=== PATIENT | male | born 1970 | race African-American/Black ===

== ENCOUNTER 2018-02-21 10:13 | Emergency (ER) | payer OTHER ==
[~2018-02-21] VITALS: Ht 177.8 cm; Wt 107.3 kg
[2018-02-21 10:20] VITALS: BP 122/89
[2018-02-21] MEDS ORDERED: NAPROSYN500 MG PO (11:18)
== END 2018-02-21 11:33 | disposition home or self-care (01) ==
LOC: EME 10:13
DX: M25.462 Effusion, left knee (principal); S83.92XA Sprain of unspecified site of left knee, initial encounter; S50.01XA Contusion of right elbow, initial encounter; W10.9XXA Fall (on) (from) unspecified stairs and steps, initial encounter
CPT/HCPCS: 73080; 73564; 99281; 99283